=== PATIENT | male | born 1985 | race Caucasian/White ===

== ENCOUNTER 2021-12-06 19:43 | Emergency (ER) | payer MEDICAID, SELFPAY ==
[2021-12-06 19:50] VITALS: BP 124/60; PULSE 110; RESP 18; TEMP 37; O2SAT 99; BMI 33.9
--- NOTE | 2021-12-06 19:55 | ED_ITS ---
HPI - Overdose General Chief Complaint: Overdose Stated Complaint: Overdose Source: patient and EMS Mode of arrival: EMS Limitations: no limitations History of Present Illness HPI Narrative: 35-year-old male presents via EMS for accidental overdose. Stated that he snorted some heroin, and feels that maybe there were some fentanyl in it. Patient became cyanotic, friend started CPR gave 4 mg of nasal Narcan. Patient was alert oriented without any deficit once EMS arrived. MD complaint: accidental overdose Onset (ago): hour(s) (Within the hour of arrival) Timing confirmed by: other (Friend) Context: Intentional Overdose: drug/ETOH problems Context: Accidental Overdose: wanted to get high Treatments Prior to Arrival: narcan Related Data Allergies Allergy/AdvReac Type Severity Reaction Status Date / Time cat dander [cats] Allergy Unknown Verified 12/06/21 19:59 dog dander [dogs] Allergy Unknown Verified 12/06/21 19:59 Review of Systems Review of Systems: Constitutional: No Fever, No Chills ENT/Mouth: No sore throat, No Rhinorrhea Eyes: No Eye Pain, No Swelling, No Redness Cardiovascular: No Chest Pain, No SOB Respiratory: No Cough, No Sputum Gastrointestinal: No Nausea, No Vomiting, No Diarrhea, No abdominal Pain Genitourinary: No Dysuria, No Hematuria Musculoskeletal: No joint pain, No Myalgias, No Joint Swelling Skin: No Skin Lesions, No rash Neuro: No Weakness, No Numbness, No Loss of Consciousness, No Dizziness, No Headache Psych: Positive overdose, No Anxiety, No Depression, No SI/HI/AH/VH Heme/Lymph: No Bruising, No Bleeding,No Lymphadenopathy Endocrine: No Polyuria, No Polydipsia Yes all other systems are reviewed and are negative [facility] Past Medical History Attestation statement: The following information was validated with the patient. Source: old records reviewed Social History Social History Advance Directives: No Physical Exam Vital Signs: Vital Signs: Last Vital Signs Temp 98.6 F 12/06/21 19:50 Pulse 110 H 12/06/21 19:50 Resp 18 12/06/21 19:50 BP 124/60 12/06/21 19:50 Pulse Ox 99 12/06/21 19:50 BMI result Body Mass Index 33.9 Appearance: Alert. Oriented X3. No acute distress. Head: Normal external exam. Normocephalic. Atraumatic. No Cano signs noted. No raccoon eyes noted Eyes: PERRLA. EOMI. Conjunctiva reddened, sclera normal. Eyelids normal. ENT: TM's Normal. Pharynx normal. Uvula midline. Moist mucous membranes. No trismus noted. No drooling noted. No muffled voice noted. Neck: Normal inspection. Neck supple. No adenopathy. No meningeal signs. CVS: Normal heart rate and rhythm. Heart sound normal. No murmurs noted. Pulses equal to all extremities. No chest wall tenderness to palpation. Respiratory: No respiratory distress. Painless inspiration. Breath sounds normal. No wheezes/rales/rhonchi noted. Chest nontender. No accessory muscle usage noted or decreased air movement noted. Abdomen: Soft and nontender. Bowel sounds normal in all 4 quadrants. No distention noted. No organomegaly noted. No visible injury noted. Back: No CVA tenderness. Full range of motion noted. Skin: Skin warm and dry. Normal skin color. Normal skin turgor. No rashes/lesions/lacerations noted. Extremities: No lower extremity edema. Extremities exhibit normal range of motion. Extremities nontender. Neuro: cranial nerves 2-12 intact, no focal neural deficits, strength 5/5 to all extremities, No motor deficit. No sensory deficit. Reflexes normal. Course Course Course Narrative: 35-year-old male presents via EMS for accidental overdose. CPR was started, patient does not have any respiratory symptoms, no chest wall tenderness to palpation, even unlabored respirations, no pain on inspiration. Apical pulse occult pulses to extremities. Chari, I did tell him that we would monitor him approximately 2 hours. Patient is alert oriented x4, answering questions politely and appropriately, moves all extremities spontaneously and against resistance. Stated that he was using some heroin, must have had sentinel or something else in it. No prior history of overdose in the past. Does not feel that he needs detox at this time, respectfully declined speaking to the customer care team coach. 8:40 p.m. patient asleep. Easily arousable. Alert oriented x4, answering questions politely and appropriately. Even unlabored respirations, clear lung sounds throughout. Chest wall remains nontender to palpation. Patient continues to respectfully decline detox and customer care team coach discussion. Patient verbalized understanding and agrees to care to discharge home. MDM - Overdose Differential Diagnosis Differential diagnosis: Likely drug overdose and accidental drug ingestion Medical Records Attestation: I reviewed the patient's medical records. Discharge Plan Discharge Clinical Impression: Drug overdose Qualifiers: Encounter type: initial encounter Injury intent: accidental or unintentional Qualified Code(s): T50.901A - Poisoning by unspecified drugs, medicaments and biological substances, accidental (unintentional), initial encounter Patient Disposition: Home, Self-Care Instructions: Adult Overdose (ED) Additional Instructions: You were evaluated for accidental overdose. Please consider detox. Thank you for choosing this emergency department for evaluation. Please follow-up with primary care physician as needed. Return to the emergency department for any new, concerning, or worsening symptoms. Interventions: ED Discharge Assessment Last Done: 12/06/21 20:46 Discharge Date/Time: 12/06/21 20:50
== END 2021-12-06 20:50 | disposition home or self-care (01) ==
PROVIDERS: Emergency Provider Internal Medicine
DX: T50.901A Poisoning by unspecified drugs, medicaments and biological substances, accidental (unintentional), initial encounter (principal); R40.4 Transient alteration of awareness; Y92.9 Unspecified place or not applicable
CPT/HCPCS: 99283